=== PATIENT | female | born 1975 ===

== ENCOUNTER 2020-08-07 05:20 | Day surgery (SDC) | payer OTHER ==
[~2020-08-07 05:20] MED LIST: ALTACE5 MG PO; LEVOTHYROXINE25 MCG PO
== END 2020-08-07 16:40 | disposition home or self-care (01) ==
LOC: CIR.AMB 05:20
PROVIDERS: ATTEND Obstetrics & Gynecology
DX: N94.19 Other specified dyspareunia (principal); N90.5 Atrophy of vulva; Z20.822 Contact with and (suspected) exposure to COVID-19